=== PATIENT | female | born 1965 | race Caucasian/White ===

== ENCOUNTER → 2018-08-07 | Day surgery (SDC) | payer BC ==
[2018-08-03 10:42] LABS: Basophils # (auto) 0 uL; Basophils % (auto) 0.7 % (0.0-2.0); Eosinophils # (auto) 0.3 uL; Eosinophils % (auto) 4.8 % (0.0-7.0); Hematocrit 40.3 % (36.0-46.0); Hemoglobin 13.3 g/dL (12.2-16.2); Lymphocytes # (auto) 2.1 uL; Lymphocytes % (auto) 36.8 % (10.0-50.0); Mean Corpuscular Hemoglobin 31.2 pg (28.0-32.0); Mean Corpuscular Hgb Conc. 33.1 g/dL (32.0-36.0); Mean Corpuscular Volume 94.3 fL (80.0-100.0); Monocytes # (auto) 0.4 uL; Monocytes % (auto) 6.8 % (0.0-12.0); Neutrophils # (auto) 2.9 uL; Neutrophils % (auto) 50.9 % (37.0-80.0); Platelet Count (auto) 367 10^3/uL (140-450); Red Blood Cells 4.28 10^6/uL (4.0-5.20); Red Cell Distribution Width 13.2 % (11.8-14.3); White Blood Cell 5.7 10^3/uL (4.4-10.8)
[2018-08-03 10:43] LABS: Urine Bacteria NONE SEEN /hpf (None Seen); Urine Blood Negative /uL (Negative); Urine Specific Gravity 1.017 (1.001-1.035); Urine WBC 1 /hpf (0 - 5)
[2018-08-03 10:58] LABS: INR 0.87 (0.9-1.15); Partial Thromboplastin Time 27.9 sec (23.78-33.04); Prothrombin Time 9.4 sec (9.27-12.13)
[2018-08-03 11:29] LABS: Albumin 3.3 g/dL (3.4-5.0); Calcium 8.6 mg/dL (8.5-10.1); Potassium 4.1 mmol/L (3.5-5.1)
[2018-08-03 11:32] LABS: BUN/Creatinine Ratio 9.3; Bilirubin, Total 0.4 mg/dL (0.2-1.0); Total Protein 6.6 g/dL (6.4-8.2)
[~2018-08-07] VITALS: Ht 190.5 cm; Wt 90.7 kg
[~2018-08-07] MED LIST: BREX1TAB6 PO; CLINDAMYCIN 600MG IV 50 ML IV ONE; DEXAMETHASONE SOD PHOS 10MG/1ML VIAL INJ ONE; GABA800T97 PO; KETOROLAC TROMETH 30 MG/ML 1ML VIAL IV ONE; KETOROLAC TROMETH 30 MG/ML 1ML VIAL ONE; LABETALOL HCL 5 MG/ML 4ML SYRINGE IV PRN; LAMO200T2 PO; LETR2.5T PO; MEPERIDINE HCL (50 MG/ML) 1 ML VIAL ONE; MIDAZOLAM HCL 1MG/1ML-2 ML VIAL IV PRN; MIDAZOLAM HCL 1MG/1ML-2 ML VIAL ONE; MORPHINE SULFATE 4 MG/ML SYR/VIAL IV ONE; MORPHINE SULFATE 4 MG/ML SYR/VIAL IV PRN; ONDANSETRON HCL 4 MG/2 ML VIAL IV ONE; PROPOFOL 10 MG/ML 20 ML IV ONE; QUET100T38 PO; ePHEDrine SULFATE 50 MG/ML AMP IV PRN; fentaNYL CITRATE 100 MCG/2 ML VL ONE
[2018-08-07] MEDS: HYDROmorphone HCL 2 MG/ML VL IV PRN ×4 (11:19→11:49)
[2018-08-07 11:46] VITALS: BP 158/73
== END | disposition home or self-care (01) ==
LOC: SUR 08:20
PROVIDERS: ATTEND Orthopaedic Surgery
DX: S52.502A Unspecified fracture of the lower end of left radius, initial encounter for closed fracture (principal); F32.9 Major depressive disorder, single episode, unspecified; Z88.1 Allergy status to other antibiotic agents; Z85.3 Personal history of malignant neoplasm of breast; Z96.643 Presence of artificial hip joint, bilateral; Z90.11 Acquired absence of right breast and nipple; Z98.890 Other specified postprocedural states; Z79.899 Other long term (current) drug therapy; Z87.891 Personal history of nicotine dependence; X58.XXXA Exposure to other specified factors, initial encounter; Y93.9 Activity, unspecified; Y92.9 Unspecified place or not applicable; Y99.9 Unspecified external cause status
CPT/HCPCS: 25606; 36415; 73100; 76000; 80053; 81001; 85025; 85610; 85730; C1713; J1100; J1170; J1885; J2175; J2250; J2704; J3010; J3490